=== PATIENT | male | born 1975 | race Caucasian/White ===

== ENCOUNTER 2022-03-04 08:15 | Emergency (ER) | payer OTHER ==
[2022-03-04 08:40] VITALS: RESP 18; TEMP 98.2; BMI 21.6
[2022-03-04] MEDS ORDERED: FAMOTIDINE 20 MG/50 ML IVPB 20 MG/50 ML MG IVPB ONE ×2 (09:09→09:34)
[2022-03-04] MEDS ORDERED: ONDANSETRON 4 MG/2 ML VIAL IVPUSH ONE (09:09)
[2022-03-04] MEDS ORDERED: MAG HYDROX/AL HYDROX/SIMETH 30 ML UNIT-DOSE CUP PO ONE (09:09)
[2022-03-04] MEDS ORDERED: SODIUM CHLORIDE 0.9% 500 ML INFUS.BAG IV ONE (09:10)
[2022-03-04] MEDS ORDERED: TRIMETHOBENZAMIDE HCL 200MG/2ML INJ IM ONE ×2 (09:33→09:34)
[2022-03-04 09:58] LABS: MCHC 28.4 g/dl (32.0-35.9)
[2022-03-04 10:05] LABS: INR 1.24 (0.83-1.09); PROTHROMBIN TIME (PATIENT) 14.3 SEC (9.7-13.0)
[2022-03-04 10:07] LABS: CALCIUM 9.3 mg/dL (8.5-10.1)
[2022-03-04 10:08] LABS: ACTIVATED PTT 26.2 SECONDS (25.2-36.5); ALBUMIN 3.8 g/dl (3.4-5.0); BLOOD UREA NITROGEN 10.2 mg/dL (7-18); MAGNESIUM 1.9 mg/dL (1.8-2.4)
[2022-03-04 10:10] LABS: CREATININE 1.3 mg/dL (0.55-1.3)
[2022-03-04 10:12] LABS: BILIRUBIN,TOTAL 1.6 mg/dL (0.2-1); TOT PROT 7.5 g/dl (6.4-8.2)
[2022-03-04 10:16] LABS: N-TERMINAL BNP 1237.7 pg/ml (5-125)
[2022-03-04] MEDS ORDERED: MAG HYDROX/AL HYDROX/SIMETH 30 ML UNIT-DOSE CUP ONE (11:00)
[2022-03-04 11:48] LABS: HEMATOCRIT 35.3 % (35.4-49); MEAN CELL VOLUME 66.6 fl (80-96); MEAN PLT VOLUME 8.7 fl (7.5-11.1); PLATELET COUNT 245 10^3/uL (134-434); RBC 5.29 M/mm3 (4.00-5.60); RDW 22.9 % (11.9-15.9); WHITE BLOOD COUNT 19.2 K/mm3 (4.0-10.0)
[2022-03-04 11:49] LABS: MCH 18.9 pg (25.7-33.7)
[2022-03-04] MEDS ORDERED: ALBUTEROL SO4 2 MG TABLET PO ONE (12:10)
[2022-03-04] MEDS ORDERED: ALBUTEROL SO4 HFA INHALER IH ONE (12:12)
[2022-03-04 12:25] VITALS: BP 139/73; PULSE 95
[2022-03-04 13:24] LABS: ANISOCYTOSIS 2+; MACROCYTOSIS 0; OVALOCYTE 2+; TEAR DROP CELLS 1+; TOXIC GRANULATION 2+
[2022-03-04] MEDS ORDERED: CEFTRIAXONE 1,000 MG in DEXTROSE 5%-WATER - 50 ML IVPB ONE (13:28)
[2022-03-04] MEDS ORDERED: AZITHROMYCIN IVPB 500 MG in DEXTROSE 5%-WATER - 250 ML IVPB ONE (13:28)
== END 2022-03-04 15:47 | disposition home or self-care (01) ==
LOC: JER 08:15
PROC: 3E033GC Introduction of Other Therapeutic Substance into Peripheral Vein, Percutaneous Approach (ICD-10-PCS; principal; 2022-03-04)
PROC: 3E0233Z Introduction of Anti-inflammatory into Muscle, Percutaneous Approach (ICD-10-PCS; 2022-03-04)
DX: J18.9 Pneumonia, unspecified organism (principal)
CPT/HCPCS: 36415; 71046-TC-FY; 71275-TC; 74176-TC; 76705-TC; 80053; 83690; 83735; 83880; 84484; 85025; 85379; 85610; 85730; 93005; 93010; 93308; 99285-25; C9803-CS; Q9967; U0003; U0005

== ENCOUNTER 2022-05-21 14:28 | Observation (INO) | payer OTHER ==
[2022-05-21 15:13] VITALS: BMI 22.3
[2022-05-21 19:31] LABS: EOS % 2.7 % (0-4.5); HEMATOCRIT 22.6 % (35.4-49); LYMPH % 15.4 % (8-40); MEAN CELL VOLUME 56.5 fl (80-96); MEAN PLT VOLUME 8.7 fl (7.5-11.1); NEUT % 67.9 % (42.8-82.8); PLATELET COUNT 459 10^3/uL (134-434); RBC 3.99 M/mm3 (4.00-5.60); WHITE BLOOD COUNT 8.5 K/mm3 (4.0-10.0)
[2022-05-21 19:36] LABS: INR 1.19 (0.83-1.09); PROTHROMBIN TIME (PATIENT) 13.7 SEC (9.7-13.0)
[2022-05-21 19:48] LABS: HEMOGLOBIN 6.6 GM/dL (11.7-16.9); MCH 16.4 pg (25.7-33.7)
[2022-05-21 19:50] LABS: ALBUMIN 3.7 g/dl (3.4-5.0); BLOOD UREA NITROGEN 15.4 mg/dL (7-18); CALCIUM 9.2 mg/dL (8.5-10.1)
[2022-05-21 19:51] LABS: LIPASE 168 U/L (73-393)
[2022-05-21 19:53] LABS: CREATININE 0.8 mg/dL (0.55-1.3)
[2022-05-21 19:55] LABS: BILIRUBIN,TOTAL 0.6 mg/dL (0.2-1); TOT PROT 7.3 g/dl (6.4-8.2)
[2022-05-22 01:38] VITALS: RESP 16
[2022-05-22] MEDS ORDERED: ACETAMINOPHEN 325 MG TABLET (FP) PO PRN (08:20)
[2022-05-22] MEDS ORDERED: FERRIC CARBOXYMALTOSE 750 MG in SODIUM CHLORIDE 250 ML IVPB ONE ×2 (08:20→10:15)
[2022-05-22] MEDS ORDERED: ACETAMINOPHEN 325 MG TABLET (FP) ONE (08:58)
[2022-05-22] MEDS ORDERED: IRON SUCROSE INJECTION 100 MG in SODIUM CHLORIDE 95 ML IVPB ONE (10:07)
[2022-05-22 10:56] LABS: HEMATOCRIT 25.2 % (35.4-49); HEMOGLOBIN 7.5 GM/dL (11.7-16.9); MCHC 29.8 g/dl (32.0-35.9); MEAN CELL VOLUME 58.5 fl (80-96); MEAN PLT VOLUME 8.7 fl (7.5-11.1); PLATELET COUNT 394 10^3/uL (134-434); RBC 4.32 M/mm3 (4.00-5.60); RDW 26.4 % (11.9-15.9); WHITE BLOOD COUNT 8.8 K/mm3 (4.0-10.0)
[2022-05-22 10:57] LABS: MCH 17.4 pg (25.7-33.7)
[2022-05-22 14:50] VITALS: BP 144/80; PULSE 103; TEMP 97.9
== END 2022-05-22 15:00 | disposition home or self-care (01) ==
LOC: JER 14:28 → JERBED 19:50
PROVIDERS: ADMIT Internal Medicine; ATTEND Internal Medicine
PROC: 30233N1 Transfusion of Nonautologous Red Blood Cells into Peripheral Vein, Percutaneous Approach (ICD-10-PCS; principal; 2022-05-21)
PROC: 3E033GC Introduction of Other Therapeutic Substance into Peripheral Vein, Percutaneous Approach (ICD-10-PCS; 2022-05-21)
DX: D50.8 Other iron deficiency anemias (principal); J45.909 Unspecified asthma, uncomplicated; F10.10 Alcohol abuse, uncomplicated; K92.1 Melena
CPT/HCPCS: 0241U-QW; 36415; 36430; 80053; 80307; 82272; 83690; 85025; 85027; 85610; 86850; 86900; 86901; 86922; 93005; 93010; 99285-25; G0378; J1439; P9058

== ENCOUNTER 2022-06-12 10:40 | Day surgery (SDC) | payer OTHER ==
[2022-06-12 11:30] VITALS: RESP 18; TEMP 98
[2022-06-12] MEDS ORDERED: FERRIC CARBOXYMALTOSE 750 MG in SODIUM CHLORIDE 250 ML IVPB ONE (11:30)
[2022-06-12 12:11] VITALS: BP 116/65; PULSE 84
== END 2022-06-12 12:11 | disposition home or self-care (01) ==
LOC: FINFUSION 10:40 → FM/S 10:42 → FINFUSION 12:11
PROVIDERS: ATTEND Internal Medicine Gastroenterology
DX: D50.9 Iron deficiency anemia, unspecified (principal)
CPT/HCPCS: 96365; J1439

== ENCOUNTER 2022-06-15 11:57 | Emergency (ER) | payer OTHER ==
[2022-06-15 12:06] VITALS: BP 117/77; PULSE 99; RESP 16; TEMP 98.3; BMI 21.6
[2022-06-15] MEDS ORDERED: IBUPROFEN 400 MG TABLET (FP) PO ONE ×2 (12:28→12:36)
== END 2022-06-15 13:41 | disposition home or self-care (01) ==
LOC: FER 11:57
DX: L03.113 Cellulitis of right upper limb (principal)
CPT/HCPCS: 73070-TC-RT-FY; 99283-25

== ENCOUNTER 2022-07-01 11:19 | Day surgery (SDC) | payer OTHER ==
[2022-07-01] MEDS ORDERED: FERRIC CARBOXYMALTOSE 750 MG in SODIUM CHLORIDE 250 ML IVPB ONE (12:30)
[2022-07-01 13:33] VITALS: BP 137/97; PULSE 93; RESP 17; TEMP 98.8
== END 2022-07-01 13:10 | disposition home or self-care (01) ==
LOC: FINFUSION 11:19 → FM/S 11:21 → FINFUSION 13:10
PROVIDERS: ATTEND Internal Medicine Gastroenterology
PROC: 3E033GC Introduction of Other Therapeutic Substance into Peripheral Vein, Percutaneous Approach (ICD-10-PCS; principal; 2022-07-01)
DX: D50.9 Iron deficiency anemia, unspecified (principal)
CPT/HCPCS: 96365; J1439

== ENCOUNTER 2023-05-05 09:46 | Inpatient (IN) | payer OTHER ==
[2023-05-05] MEDS ORDERED: LACTATED RINGERS SOLUTION 1000 ML INFUS.BAG IV ONE (11:02)
[2023-05-05] MEDS ORDERED: FAMOTIDINE 20 MG/50 ML IVPB 20 MG/50 ML MG IVPB ONE ×2 (11:03→12:51)
[2023-05-05] MEDS ORDERED: ONDANSETRON 4 MG/2 ML VIAL IVPUSH ONE ×2 (11:03→18:08)
[2023-05-05] MEDS ORDERED: ONDANSETRON 4 MG/2 ML VIAL ONE ×2 (12:36→18:52)
[2023-05-05] MEDS ORDERED: FAMOTIDINE 10 MG/ML VIAL IVPB ONE (12:37)
[2023-05-05 12:49] LABS: BASO % 0.2 % (0-2.0); EOS % 0.4 % (0-4.5); HEMATOCRIT 41.5 % (35.4-49); HEMOGLOBIN 13.6 GM/dL (11.7-16.9); LYMPH % 7.1 % (8-40); MCHC 32.7 g/dl (32.0-35.9); MEAN CELL VOLUME 79.4 fl (80-96); MEAN PLT VOLUME 8.1 fl (7.5-11.1); MONO % 11.4 % (3.8-10.2); NEUT % 80.9 % (42.8-82.8); PLATELET COUNT 224 10^3/uL (134-434); RBC 5.22 M/mm3 (4.00-5.60); WHITE BLOOD COUNT 8.3 K/mm3 (4.0-10.0)
[2023-05-05 13:04] LABS: INR 1.05 (0.83-1.09); PROTHROMBIN TIME (PATIENT) 12.2 SEC (9.7-13.0)
[2023-05-05 13:07] LABS: ACTIVATED PTT 27.5 SECONDS (25.2-36.5)
[2023-05-05 13:08] LABS: POTASSIUM 3.8 mmol/L (3.5-5.1)
[2023-05-05 13:11] LABS: ALBUMIN 3.6 g/dl (3.4-5.0); ANISOCYTOSIS 1+; BLOOD UREA NITROGEN 10.7 mg/dL (7-18); CALCIUM 9.3 mg/dL (8.5-10.1); MACROCYTOSIS 1+
[2023-05-05 13:13] LABS: MAGNESIUM 1.7 mg/dL (1.8-2.4)
[2023-05-05 13:14] LABS: CREATININE 0.6 mg/dL (0.55-1.3); PHOSPHOROUS 2.8 mg/dL (2.5-4.9)
[2023-05-05 13:17] LABS: BILIRUBIN,TOTAL 0.6 mg/dL (0.2-1); TOT PROT 7.5 g/dl (6.4-8.2)
[2023-05-05] MEDS ORDERED: MAGNESIUM SULFATE IN WATER 2 GM/50 ML IVPB IVPB ONE ×2 (13:25→14:27)
[2023-05-05] MEDS ORDERED: ACETAMINOPHEN 1000 MG/100 ML BAG IVPB ONE ×2 (13:42→21:22)
[2023-05-05] MEDS ORDERED: ACETAMINOPHEN INJECTION 100 ML IVPB ONE (14:27)
[2023-05-05 22:52] VITALS: RESP 18
[2023-05-05 23:14] LABS: EPI CELLS 11 /uL (0-25.1); HYALINE CASTS 4 /uL (0-3.1); PH,URINE 7.5 (5.0-8.0); URINE APPEARANCE Turbid; URINE BACTERIA 12 /uL (0-1359); URINE BILIRUBIN Negative (NEGATIVE); URINE COLOR Yellow; URINE GLUCOSE (UA) Negative (NEGATIVE); URINE KETONE 15 mg/dl (NEGATIVE); URINE LEUK ESTERASE Negative (NEGATIVE); URINE NITRITE Negative (NEGATIVE); URINE PROTEIN Negative (NEGATIVE); URINE RBC 38 /uL (0-23.9); URINE UROBILINOGEN 0.2 mg/dL (0.2-1.0); URINE WBC 23 /uL (0-25.8)
[2023-05-05] MEDS ORDERED: LORazepam 2 MG/ML SDV VIAL IVPUSH PRN (23:50)
[2023-05-06] MEDS ORDERED: ALBUTEROL SO4 HFA INHALER IH PRN (00:45)
[2023-05-06] MEDS ORDERED: LORazepam 2 MG/ML SDV VIAL IVPUSH PRN (00:47)
[2023-05-06] MEDS ORDERED: FOLIC ACID INJECTION - 1 MG, THIAMINE HCL 100 MG, MULTIVIT INJECTION ADULT 10 ML in SOD... IVPB ONE (01:30)
[2023-05-06] MEDS ORDERED: MAGNESIUM SULFATE IN WATER 2 GM/50 ML IVPB IVPB ONE (04:00)
[2023-05-06] MEDS ORDERED: ACETAMINOPHEN 1000 MG/100 ML BAG IVPB PRN (04:47)
[2023-05-06 08:04] LABS: BASO % 0.4 % (0-2.0); EOS % 1.3 % (0-4.5); HEMATOCRIT 36.9 % (35.4-49); HEMOGLOBIN 11.8 GM/dL (11.7-16.9); LYMPH % 10.4 % (8-40); MCH 25.6 pg (25.7-33.7); MEAN CELL VOLUME 79.9 fl (80-96); MEAN PLT VOLUME 8.1 fl (7.5-11.1); MONO % 15.1 % (3.8-10.2); NEUT % 72.8 % (42.8-82.8); PLATELET COUNT 179 10^3/uL (134-434); RBC 4.62 M/mm3 (4.00-5.60); RDW 20.2 % (11.9-15.9); WHITE BLOOD COUNT 7.6 K/mm3 (4.0-10.0)
[2023-05-06 08:26] LABS: POTASSIUM 3.5 mmol/L (3.5-5.1)
[2023-05-06 08:32] LABS: MAGNESIUM 2.7 mg/dL (1.8-2.4)
[2023-05-06 08:35] LABS: PHOSPHOROUS 2.4 mg/dL (2.5-4.9)
[2023-05-06 08:36] LABS: BILIRUBIN,TOTAL 0.5 mg/dL (0.2-1); CREATININE 0.6 mg/dL (0.55-1.3); TOT PROT 5.8 g/dl (6.4-8.2)
[2023-05-06 08:45] LABS: ALBUMIN 2.8 g/dl (3.4-5.0); CALCIUM 7.6 mg/dL (8.5-10.1)
[2023-05-06] MEDS ORDERED: ENOXAPARIN NA (PORCINE) 40 MG/0.4 ML DISP.SYRIN SQ SCH (10:00)
[2023-05-06] MEDS ORDERED: FAMOTIDINE 20 MG TABLET PO SCH (10:00)
[2023-05-06] MEDS ORDERED: LACTATED RINGERS SOLUTION 1,000 ML/1,000 ML INFUS.BAG IV SCH (11:30)
[2023-05-06] MEDS: ACETAMINOPHEN 1000 MG/100 ML BAG IVPB PRN ×2 (11:41→17:58)
[2023-05-06] MEDS: THIAMINE HCL 100 MG TABLET (FP) PO SCH (14:56)
[2023-05-06] MEDS: FOLIC ACID 1 MG TABLET (FP) PO SCH (14:56)
[2023-05-06] MEDS: amLODIPine BESYLATE 5 MG TABLET (FP) PO SCH (14:56)
[2023-05-06] MEDS: POLYETHYLENE GLYCOL (HEALTHYLAX) 3350 17 GM PACKET PO SCH (21:37)
[2023-05-07] MEDS ORDERED: ACETAMINOPHEN 1000 MG/100 ML BAG IVPB PRN (08:05)
[2023-05-07 09:27] LABS: HEMATOCRIT 39.1 % (35.4-49); HEMOGLOBIN 12.2 GM/dL (11.7-16.9); MCH 25.3 pg (25.7-33.7); MCHC 31.2 g/dl (32.0-35.9); MEAN PLT VOLUME 8.2 fl (7.5-11.1); PLATELET COUNT 188 10^3/uL (134-434); RBC 4.82 M/mm3 (4.00-5.60); RDW 19.8 % (11.9-15.9); WHITE BLOOD COUNT 7.2 K/mm3 (4.0-10.0)
[2023-05-07 09:43] LABS: POTASSIUM 3.6 mmol/L (3.5-5.1)
[2023-05-07 09:46] LABS: ALBUMIN 2.8 g/dl (3.4-5.0); BLOOD UREA NITROGEN 3.9 mg/dL (7-18); CALCIUM 8.1 mg/dL (8.5-10.1)
[2023-05-07 09:52] LABS: BILIRUBIN,TOTAL 0.4 mg/dL (0.2-1)
[2023-05-07 09:54] LABS: CREATININE 0.6 mg/dL (0.55-1.3)
[2023-05-07] MEDS: amLODIPine BESYLATE 5 MG TABLET (FP) PO SCH (09:58)
[2023-05-07] MEDS: FOLIC ACID 1 MG TABLET (FP) PO SCH (09:58)
[2023-05-07] MEDS: THIAMINE HCL 100 MG TABLET (FP) PO SCH (09:58)
[2023-05-07] MEDS: LACTATED RINGERS SOLUTION 1,000 ML/1,000 ML INFUS.BAG IV SCH (09:58)
[2023-05-07] MEDS: POLYETHYLENE GLYCOL (HEALTHYLAX) 3350 17 GM PACKET PO SCH ×2 (09:59→21:40)
[2023-05-07 11:00] LABS: HEPATITIS B SURFACE AG MATERN NON-REACTIVE (NONREACTIVE)
[2023-05-07 16:23] VITALS: BMI 19.1
[2023-05-08] MEDS: LACTATED RINGERS SOLUTION 1,000 ML/1,000 ML INFUS.BAG IV SCH (03:20)
[2023-05-08] MEDS: THIAMINE HCL 100 MG TABLET (FP) PO SCH (09:27)
[2023-05-08] MEDS: ACETAMINOPHEN 325 MG TABLET (FP) PO PRN ×3 (09:27→20:14)
[2023-05-08] MEDS: FOLIC ACID 1 MG TABLET (FP) PO SCH (09:27)
[2023-05-08] MEDS: amLODIPine BESYLATE 10 MG TABLET (FP) PO SCH (09:27)
[2023-05-08] MEDS: POLYETHYLENE GLYCOL (HEALTHYLAX) 3350 17 GM PACKET PO SCH ×2 (09:29→22:12)
[2023-05-08 09:31] LABS: HEMATOCRIT 42.4 % (35.4-49); HEMOGLOBIN 13.5 GM/dL (11.7-16.9); MCH 25.5 pg (25.7-33.7); MCHC 31.7 g/dl (32.0-35.9); MEAN CELL VOLUME 80.5 fl (80-96); MEAN PLT VOLUME 8.6 fl (7.5-11.1); PLATELET COUNT 219 10^3/uL (134-434); RBC 5.27 M/mm3 (4.00-5.60); RDW 20.1 % (11.9-15.9); WHITE BLOOD COUNT 7.6 K/mm3 (4.0-10.0)
[2023-05-08 10:00] LABS: BLOOD UREA NITROGEN 3.2 mg/dL (7-18); CALCIUM 8.4 mg/dL (8.5-10.1)
[2023-05-08 10:03] LABS: CREATININE 0.6 mg/dL (0.55-1.3)
[2023-05-08 10:05] LABS: BILIRUBIN,TOTAL 0.5 mg/dL (0.2-1); TOT PROT 6.4 g/dl (6.4-8.2)
[2023-05-08] MEDS ORDERED: MELATONIN 5 MG TABLETS PO PRN (22:00)
[2023-05-09] MEDS: ACETAMINOPHEN 325 MG TABLET (FP) PO PRN (05:26)
[2023-05-09] MEDS: THIAMINE HCL 100 MG TABLET (FP) PO SCH (09:41)
[2023-05-09] MEDS: amLODIPine BESYLATE 10 MG TABLET (FP) PO SCH (09:41)
[2023-05-09] MEDS: POLYETHYLENE GLYCOL (HEALTHYLAX) 3350 17 GM PACKET PO SCH (09:41)
[2023-05-09] MEDS: FOLIC ACID 1 MG TABLET (FP) PO SCH (09:41)
[2023-05-09 14:19] VITALS: BP 142/81; PULSE 96; TEMP 98.1
== END 2023-05-09 16:49 | disposition home or self-care (01) | DRG 439 ==
LOC: JER 09:46 → JERBED 18:45 → J8W 20:46 → OBSVTOIN 05-07 15:57
PROVIDERS: ADMIT Internal Medicine; ATTEND Internal Medicine
DX: K85.20 Alcohol induced acute pancreatitis without necrosis or infection (principal); E87.1 Hypo-osmolality and hyponatremia; I42.8 Other cardiomyopathies; K86.2 Cyst of pancreas; J45.909 Unspecified asthma, uncomplicated; D50.9 Iron deficiency anemia, unspecified; K86.89 Other specified diseases of pancreas; I10 Essential (primary) hypertension; E83.42 Hypomagnesemia; F10.90 Alcohol use, unspecified, uncomplicated
CPT/HCPCS: 0241U-QW; 36415; 71045-TC-FY; 74177-TC; 74183-TC; 80053; 80307; 81003; 82150; 83690; 83735; 84100; 84478; 84484; 85025; 85027; 85610; 85730; 86140; 86301; 86704; 86803; 87086; 87340; 87517; 93005; 93010; 99285-25; G0378; Q9967

== ENCOUNTER 2024-07-17 12:33 | Emergency (ER) | payer OTHER ==
[2024-07-17 13:37] LABS: INR 0.98 (0.83-1.09); PROTHROMBIN TIME (PATIENT) 11.2 SEC (9.7-13.0)
[2024-07-17 13:39] LABS: ACTIVATED PTT 26.2 SECONDS (25.2-36.5)
[2024-07-17 13:47] LABS: BILIRUBIN,TOTAL 0.5 mg/dl (0.2-1); CALCIUM 8.5 mg/dl (8.5-10.1); CREATININE 0.6 mg/dl (0.6-1.3); POTASSIUM 3.5 mmol/L (3.5-5.1); TOT PROT 6.8 g/dl (6.4-8.2)
[2024-07-17 14:06] LABS: HEMATOCRIT 19.9 % (35.4-49); MCHC 27.4 g/dl (32.0-35.9); MEAN PLT VOLUME 8.2 fl (7.5-11.1); RBC 3.31 10^6/uL (4.00-5.60); WHITE BLOOD COUNT 3.9 10^3/uL (4.0-10.8)
[2024-07-17 14:11] LABS: MCH 16.5 pg (25.7-33.7)
[2024-07-17 14:14] LABS: HEMOGLOBIN 5.5 G/dL (11.7-16.9)
[2024-07-17 14:26] LABS: ANISOCYTOSIS 3+; MACROCYTOSIS 1+; PLATELET ESTIMATE ADEQUATE
[2024-07-17 16:21] LABS: HIV INTERPRETATION NEGATIVE (NEGATIVE)
[2024-07-17 18:31] VITALS: BMI 20.3
[2024-07-17] MEDS ORDERED: ACETAMINOPHEN 325 MG TABLET (FP) PO PRN (21:19)
[2024-07-17] MEDS ORDERED: DOCUSATE SODIUM 100 MG CAPSULE (FP) PO PRN (21:19)
[2024-07-18 09:35] LABS: CALCIUM 8.1 mg/dl (8.5-10.1); CREATININE 0.6 mg/dl (0.6-1.3); MAGNESIUM 1.6 mg/dL (1.8-2.4); PHOSPHOROUS 2.9 (2.5-4.9); POTASSIUM 3.8 mmol/L (3.5-5.1)
[2024-07-18] MEDS: MULTIVITAMINS (DAILY MVI) TABLET (FP) PO SCH (10:18)
[2024-07-18] MEDS: FERROUS SO4 325 MG TABLET (FP) PO SCH (10:18)
[2024-07-18 11:50] LABS: EOS % 0.9 % (0-4.5); HEMATOCRIT 24.4 % (35.4-49); HEMOGLOBIN 7.1 GM/dL (11.7-16.9); LYMPH % 15.1 % (8-40); MEAN CELL VOLUME 67.5 fl (80-96); MEAN PLT VOLUME 8.4 fl (7.5-11.1); PLATELET COUNT 233 10^3/uL (134-434); RBC 3.61 M/mm3 (4.00-5.60); RDW 29.7 % (11.9-15.9); WHITE BLOOD COUNT 4.4 K/mm3 (4.0-10.0)
[2024-07-18 12:00] LABS: MCH 19.5 pg (25.7-33.7)
[2024-07-18 13:00] LABS: ANISOCYTOSIS 2+; MACROCYTOSIS 0; OVALOCYTE 1+
[2024-07-18] MEDS: MAGNESIUM 1GM/D5W 100ML - 100 ML IVPB IVPB ONE (13:50)
[2024-07-19] MEDS: IRON SUCROSE INJECTION 200 MG in SODIUM CHLORIDE 100 ML IVPB ONE (11:54)
[2024-07-19] MEDS: THIAMINE 100 MG TABLET PO SCH (11:54)
[2024-07-19] MEDS: FOLIC ACID 1 MG TABLET (FP) PO SCH (11:54)
[2024-07-19 12:23] LABS: HEMATOCRIT 29.1 % (35.4-49); HEMOGLOBIN 8.4 GM/dL (11.7-16.9); MCH 20.7 pg (25.7-33.7); MCHC 28.8 g/dl (32.0-35.9); MEAN CELL VOLUME 71.8 fl (80-96); MEAN PLT VOLUME 8.2 fl (7.5-11.1); PLATELET COUNT 207 10^3/uL (134-434); RBC 4.05 M/mm3 (4.00-5.60); RDW 29.9 % (11.9-15.9); WHITE BLOOD COUNT 4.6 K/mm3 (4.0-10.0)
[2024-07-19 13:09] LABS: ANISOCYTOSIS 3+; MACROCYTOSIS 0; OVALOCYTE 1+; TARGET CELLS 1+
[2024-07-20 01:54] VITALS: RESP 18
[2024-07-20 08:54] LABS: ALBUMIN 3.1 g/dl (3.4-5.0); BILIRUBIN,TOTAL 0.6 mg/dl (0.2-1); CALCIUM 8.2 mg/dl (8.5-10.1); CREATININE 0.6 mg/dl (0.6-1.3); TOT PROT 5.4 g/dl (6.4-8.2)
[2024-07-20 10:22] VITALS: BP 121/77; PULSE 85; TEMP 97.3
[2024-07-20 12:08] LABS: BASO % 0.7 % (0-2.0); EOS % 1.8 % (0-4.5); HEMATOCRIT 29.6 % (35.4-49); HEMOGLOBIN 8.8 GM/dL (11.7-16.9); LYMPH % 17.7 % (8-40); MCH 21.6 pg (25.7-33.7); MCHC 29.9 g/dl (32.0-35.9); MEAN CELL VOLUME 72.2 fl (80-96); MEAN PLT VOLUME 8.7 fl (7.5-11.1); MONO % 16.3 % (3.8-10.2); NEUT % 63.5 % (42.8-82.8); PLATELET COUNT 194 10^3/uL (134-434); WHITE BLOOD COUNT 5.3 K/mm3 (4.0-10.0)
== END 2024-07-20 13:45 | disposition home or self-care (01) ==
LOC: FER 12:33 → FM/S 14:17 → INTOOBSV 14:17
PROVIDERS: ATTEND Internal Medicine
PROC: 3E033GC Introduction of Other Therapeutic Substance into Peripheral Vein, Percutaneous Approach (ICD-10-PCS; principal; 2024-07-19)
PROC: 3E033GC Introduction of Other Therapeutic Substance into Peripheral Vein, Percutaneous Approach (ICD-10-PCS; 2024-07-19)
DX: D64.9 Anemia, unspecified (principal); R53.83 Other fatigue; R42 Dizziness and giddiness; R06.02 Shortness of breath
CPT/HCPCS: 36415; 36430; 80048; 80053; 82272; 82607; 82728; 82746; 83010; 83540; 83550; 83615; 83690; 83735; 84100; 85025; 85610; 85730; 86803; 86850; 86900; 86901; 86922; 87389; 93005; 96365; 96375; 99284-25; G0378; J1756; P9058